=== PATIENT | female | born 1980 | race Two or more races ===

== ENCOUNTER 2021-12-24 01:16 | Emergency (ER) | payer OTHER ==
[2021-12-24 01:38] VITALS: BP 125/79; PULSE 73; TEMP 97.6; BMI 30.1
[2021-12-24] MEDS ORDERED: AMOXICILLIN 500 MG CAPSULE (FP) PO ONE (02:37)
[2021-12-24] MEDS ORDERED: IBUPROFEN 600 MG TABLET (FP) PO ONE ×2 (02:38→02:54)
[2021-12-24] MEDS ORDERED: AMOXICILLIN 500 MG CAPSULE (FP) ONE (02:53)
== END 2021-12-24 02:58 | disposition home or self-care (01) ==
LOC: JER 01:16
DX: H66.90 Otitis media, unspecified, unspecified ear (principal)
CPT/HCPCS: 99283-25

== ENCOUNTER 2022-08-12 17:26 | Emergency (ER) | payer OTHER ==
[2022-08-12 17:37] VITALS: TEMP 97.6; BMI 30.1
[2022-08-12] MEDS ORDERED: ACETAMINOPHEN 1000 MG/100 ML BAG IVPB ONE (18:40)
[2022-08-12] MEDS ORDERED: METOCLOPRAMIDE HCL INJECTION 10 MG/2 ML VIAL IVPUSH ONE (18:40)
[2022-08-12] MEDS ORDERED: SODIUM CHLORIDE 0.9% 500 ML INFUS.BAG IV ONE (18:40)
[2022-08-12] MEDS ORDERED: LIDOCAINE 5% TOPICAL PATCH TP ONE (19:11)
[2022-08-12] MEDS ORDERED: METHOCARBAMOL 500 MG TABLET PO ONE (19:11)
[2022-08-12] MEDS ORDERED: METHOCARBAMOL 500 MG TABLET ONE (20:02)
[2022-08-12] MEDS ORDERED: METOCLOPRAMIDE HCL INJECTION 10 MG/2 ML VIAL ONE (20:02)
[2022-08-12] MEDS ORDERED: LIDOCAINE 5% TOPICAL PATCH ONE (20:03)
[2022-08-12] MEDS ORDERED: ACETAMINOPHEN INJECTION 100 ML IVPB ONE (20:03)
[2022-08-12 20:35] LABS: BASO % 0.5 % (0-2.0); EOS % 2.8 % (0-4.5); HEMATOCRIT 40.4 % (32.4-45.2); HEMOGLOBIN 13.7 GM/dL (10.7-15.3); LYMPH % 44.5 % (8-40); MCH 30.5 pg (25.7-33.7); MCHC 33.9 g/dl (32.0-36.0); MEAN CELL VOLUME 89.8 fl (80-96); MEAN PLT VOLUME 9.4 fl (7.5-11.1); MONO % 8.7 % (3.8-10.2); NEUT % 43.5 % (42.8-82.8); PLATELET COUNT 175 10^3/uL (134-434); RDW 12.7 % (11.6-15.6); WHITE BLOOD COUNT 5.7 K/mm3 (4.0-10.0)
[2022-08-12 20:36] LABS: CHLORIDE 108 mmol/L (98-107); SODIUM 142 mmol/L (136-145)
[2022-08-12 20:39] LABS: ANION GAP 9 MMOL/L (8-16); BLOOD UREA NITROGEN 8.7 mg/dL (7-18); CALCIUM 9.2 mg/dL (8.5-10.1); CO2 25 mmol/L (21-32); GLUCOSE,RANDOM 120 mg/dL (74-106)
[2022-08-12 20:41] LABS: SGOT/AST 23 U/L (15-37); SGPT/ALT 33 U/L (13-61)
[2022-08-12 20:42] LABS: CREATININE 0.8 mg/dL (0.55-1.3); INR 0.99 (0.83-1.09); PROTHROMBIN TIME (PATIENT) 11.4 SEC (9.7-13.0)
[2022-08-12 20:43] LABS: BILIRUBIN,TOTAL 0.4 mg/dL (0.2-1); TOT PROT 7.4 g/dl (6.4-8.2)
[2022-08-12 20:45] LABS: ACTIVATED PTT 31.1 SECONDS (25.2-36.5); ALK PHOS 111 U/L (45-117)
[2022-08-12 21:12] VITALS: BP 118/79; PULSE 55; RESP 18
[2022-08-13] MEDS ORDERED: LIDOCAINE PATCH REMOVAL MC SCH (07:00)
== END 2022-08-12 21:15 | disposition home or self-care (01) ==
LOC: JER 17:26
PROC: 3E0333Z Introduction of Anti-inflammatory into Peripheral Vein, Percutaneous Approach (ICD-10-PCS; principal; 2022-08-12)
PROC: 3E033GC Introduction of Other Therapeutic Substance into Peripheral Vein, Percutaneous Approach (ICD-10-PCS; 2022-08-12)
DX: M62.838 Other muscle spasm (principal); R51.9 Headache, unspecified
CPT/HCPCS: 36415; 70450-TC; 71045-TC-FY; 80053; 84484; 85025; 85610; 85730; 93005; 93010; 99285-25

== ENCOUNTER → 2024-09-16 | Day surgery (SDC) | payer OTHER | END | disposition home or self-care (01) | LOC: FMAMMOTONE 09:38 | PROVIDERS: ATTEND Advanced Practice Midwife | PROC: 0HBV3ZX Excision of Bilateral Breast, Percutaneous Approach, Diagnostic (ICD-10-PCS; principal; 2024-09-16) | DX: N64.89 Other specified disorders of breast (principal); R92.0 Mammographic microcalcification found on diagnostic imaging of breast | CPT/HCPCS: 19081; 76098-TC-FY; 87899; 88305-TC; A4648 ==